=== PATIENT | male | born 1970 | race Caucasian/White ===

== ENCOUNTER 2018-08-20 14:10 | Day surgery (SDC) | payer BC ==
[2018-08-20] VITALS (11 sets, daily range): BP systolic 94–135; BP diastolic 61–92; PULSE 76–92; RESP 12–18; Ht 165.1 cm; Wt 85.7 kg
[~2018-08-20] VITALS: Ht 165.1 cm; Wt 85.7 kg
[~2018-08-20 14:10] MED LIST: CEFAZOLIN 2 GM/50 ML (PMX) 50 ML IVPB SCH; LACTATED RINGER'S 1,000 ML IV* ONE
[2018-08-20] MEDS ORDERED: METF100010 PO (14:11)
[2018-08-20] MEDS ORDERED: GLIP2.5T3 PO (14:11)
[2018-08-20] MEDS ORDERED: ATOR10TA65 PO (14:12)
[2018-08-20] MEDS ORDERED: METO-319 PO (14:12)
[2018-08-20] MEDS ORDERED: AMLO1CAP2 PO (14:13)
--- NOTE | 2018-08-20 14:25 | HPN ---
Date/Time of Note Date/Time of Note DATE: 08/20/18 TIME: 14:25 Interval H&P Admission Note Pt. seen H&P reviewed: No system changes RADHA DORSEY Aug 20, 2018 14:25
[2018-08-20] MEDS ORDERED: BUPIVACAINE 0.5% (SDV) 30 ML INJ ONE (15:37)
[2018-08-20] MEDS ORDERED: MIDAZOLAM 1 MG/ML 2 ML INJ ONE (15:43)
[2018-08-20] MEDS ORDERED: PROPOFOL 20 ML ONE (15:43)
[2018-08-20] MEDS ORDERED: CEFAZOLIN 1 GM INJ ONE (15:43)
--- NOTE | 2018-08-20 16:11 | PREAC ---
Date/Time of Note Date/Time of Note DATE: 08/20/18 TIME: 16:09 Anesthesia Eval and Record Evaluation Time Pre-Procedure Interview DATE: 08/20/18 TIME: 16:09 Age 48 Sex male NPO: 8 hrs Preoperative diagnosis Bilateral Carpal Tunnel Syndrome Planned procedure Bilateral Carpal Tunnel Release Past Medical History Past Medical History: Includes Cardio: HTN Endo: Diabetes Surgery & Anesthesia Issues No known issue Meds Anticoagulation: No Beta Ramakrishna within 24 hr: No Reason Beta Ramakrishna not given: Pt. not on B-Ramakrishna Reported Medications Amlodipine Besylate/Benazepril (Lotrel 10-40 mg Capsule) 1 Each Capsule, 1 EACH PO DAILY, CAP 08/20/18 Metoprolol Succinate* (Toprol XL*) 50 Mg Tab.er.24h, 50 MG PO DAILY, #30 TAB 08/20/18 Atorvastatin Calcium (Atorvastatin Calcium) 10 Mg Tablet, 10 MG PO QHS, #30 TAB 08/20/18 Glipizide* (Glipizide ER*) 2.5 Mg Tab.er.24, 2.5 MG PO DAILY, TAB 08/20/18 Metformin Hcl* (Metformin Hcl*) 1,000 Mg Tablet, 1000 MG PO WITH BREAKFAST DINNE, #60 TAB 08/20/18 Current Medications Lactated Ringer's 1,000 ml @ 20 mls/hr Q24H ONCE IV* ; Start 08/20/18 at 12:00; Stop 08/21/18 at 11:59 Meds reviewed: Yes Allergies Coded Allergies: No Known Allergy (Unverified , 08/20/18) Allergies Reviewed: Yes Labs/Studies Labs Reviewed: Reviewed by anesthesiologist test: N/A Studies: ECG (n/a), CXR (n/a) Pre-procedure Exam Last vitals Vital Signs Date Temp Pulse Resp B/P (MAP) Pulse Ox O2 O2 Flow FiO2 Time Delivery Rate 08/20/18 98.0 92 16 125/84 100 Room Air 15:28 (98) Airway: Adequate mouth opening, Adequate thyromental dist Mallampati: Mallampati II Teeth: Normal Lung: Normal Heart: Normal ASA Physical Status ASA physical status: 2 Emergency: None Planned Anesthetic General/MAC: LMA Planned Pain Management Parenteral pain med Pre-operative Attestations Prior to commencing anesthesia and surgery, the patient was re-evaluated, there was verification of: *The patient's identity *The results of appropriate recent lab work and preoperative vital signs *The above evaluation not changing prior to induction *Anesthetic plan, risk benefits, alternative and complications discussed with patient/family; questions answered; patient/family understands, accepts and wishes to proceed. MELISSA VICENTE MD Aug 20, 2018 16:11
[2018-08-20] MEDS ORDERED: METOCLOPRAMIDE 10 MG INJ ONE (16:23)
[2018-08-20] MEDS ORDERED: KETOROLAC 30 MG INJ ONE (16:23)
[2018-08-20] MEDS ORDERED: ONDANSETRON 4 MG INJ ONE (16:23)
[2018-08-20] MEDS ORDERED: DEXAMETHASONE 4 MG/ML 5 ML INJ ONE (16:23)
[2018-08-20] MEDS ORDERED: OXYCODONE/ACETAMINOPHEN (5/325) TAB PO PRN ×2 (16:30)
[2018-08-20] MEDS ORDERED: ONDANSETRON 4 MG INJ IV PRN (16:30)
[2018-08-20] MEDS ORDERED: FENTAnyl 50 MCG/ML VIAL IV PRN ×2 (16:30)
[2018-08-20] MEDS ORDERED: METOCLOPRAMIDE 10 MG INJ IV PRN (16:30)
[2018-08-20] MEDS ORDERED: EPHEDrine SULFATE 50 MG/5 ML SYG IV PRN (16:30)
[2018-08-20] MEDS ORDERED: HYDROmorphONE 1 MG/5 ML IV SYRINGE IV PRN ×2 (16:30)
[2018-08-20] MEDS ORDERED: MEPERIDINE 25 MG INJ IV PRN (16:30)
[2018-08-20] MEDS ORDERED: hydrALAzine 20 MG INJ IV PRN (16:30)
[2018-08-20] MEDS ORDERED: LABETALOL HCL 20MG INJ IV PRN (16:30)
[2018-08-20] MEDS ORDERED: DIPHENHYDRAMINE 50 MG INJ IV PRN (16:30)
--- NOTE | 2018-08-20 17:04 | OPPN ---
Date/Time of Note Date/Time of Note DATE: 08/20/18 TIME: 17:03 Operative Report Preoperative Diagnosis Bilateral carpal tunnel syndrome Postoperative Diagnosis Bilateral carpal tunnel syndrome Operation/Procedure Performed Bilateral carpal tunnel release Surgeon see signature line greenhouse assistant none Anesthesia: general Estimated blood loss: 0 - 10 ml's Transfusion Required none Specimen none Grafts/Implants none Complications none RADHA DORSEY Aug 20, 2018 17:04
--- NOTE | 2018-08-20 17:12 | PAC ---
Date/Time of Note Date/Time of Note DATE: 08/20/18 TIME: 17:12 Post-Anesthesia Notes Post-Anesthesia Note Last documented vital signs Vital Signs Date Temp Pulse Resp B/P (MAP) Pulse Ox O2 O2 Flow FiO2 Time Delivery Rate 08/20/18 98.0 92 16 125/84 100 Room Air 17:18 (98) Activity: WNL Respiratory function: WNL Cardiovascular function: WNL Mental status: Baseline Pain reasonably controlled: Yes Hydration appropriate: Yes Nausea/Vomiting absent: Yes MELISSA VICENTE MD Aug 20, 2018 17:12
--- NOTE | 2018-08-20 18:02 | OPR ---
DATE OF OPERATION: 08/20/2018 SURGEON: Radha Segovia MD ANESTHESIA: General. PREOPERATIVE DIAGNOSES: 1. Right carpal tunnel syndrome. 2. Left carpal tunnel syndrome. POSTOPERATIVE DIAGNOSES: 1. Right carpal tunnel syndrome. 2. Left carpal tunnel syndrome. PROCEDURES: 1. Right carpal tunnel release, open. 2. Left carpal tunnel release, open. OPERATIVE FINDINGS: Compression of median nerve at the carpal tunnel bilaterally. INDICATION FOR PROCEDURE: A 48-year-old male with bilateral carpal tunnel syndrome, failed conservat praveen measures, elected to proceed with surgical intervention, understanding risks and benefits. DESCRIPTION OF PROCEDURE: The patient was seen in the preoperative area. All further questions were answered. Again, he gave informed consent, understanding the risks and benefits. He was taken to o perative suite and placed in supine position. He was placed under general anesthesia and tourniquet was placed in the bilateral upper extremities. Bilateral upper extremities were prepped with ChloraP rep stick and draped in the usual sterile fashion. Attention was first turned to the left upper extr emity. Ancef 2 grams IV was given and Esmarch bandage was used to exsanguinate the extremity and conner rniquet was inflated to 250 mmHg. A 2 cm incision at the base of the palm was utilized with sharp di ssection was carried down through skin and subcutaneous tissue. The palmar aponeurosis was incised a long its ulnar border and retractors were deepened to the transverse carpal ligament was divided luther g its ulnar border approximately 3 mm radial to the hook of the hamate. Retraction was placed proxim ally and distally and proximal and distal to the transverse carpal ligament were divided under direct visualization. Wound was copiously irrigated and skin was closed with 5-0 nylon. Xeroform was plac ed over the wounds followed by sterile gauze, Webril and bias bandage. Tourniquet was deflated at 23 minutes. Attention was turned to the right side. Esmarch bandage was used to exsanguinate the extr emity and tourniquet was inflated to 250 mmHg. An identical procedure was compared to the left side with a 2 cm incision at the base of the palm and division of transverse carpal ligament approximately 3 mm radial to the hook of the hamate. Wound was irrigated and skin was closed with 5-0 nylon. Xer oform was placed over the wound followed by sterile gauze, Webril and bias bandage. Tourniquet was d eflated on the right side after 10 minutes. The patient was awakened from anesthesia and taken to po stoperative suite in stable condition, tolerated procedure well without complication. SPECIMENS: None. ESTIMATED BLOOD LOSS: 5 mL. COUNTS: Sponge, instrument and needle counts were correct. TOURNIQUET TIME: Right side 10 minutes, left side 23 minutes. CONDITION ON DISCHARGE: Stable. The patient was given nonrefillable 5-day prescription for pain medication for surgery today. Dictated By: RADHA BOLAND/RAE Conf#: [id number] DID#: [id number]
== END 2018-08-20 18:17 | disposition home or self-care (01) ==
LOC: SDS 14:10
PROVIDERS: ATTEND Orthopaedic Surgery Hand Surgery
DX: G56.03 Carpal tunnel syndrome, bilateral upper limbs (principal); I10 Essential (primary) hypertension; E11.9 Type 2 diabetes mellitus without complications; Z79.84 Long term (current) use of oral hypoglycemic drugs
CPT/HCPCS: 64721; 82962; J0690; J1100; J1885; J2250; J2405; J2765; J3010; Z7610